=== PATIENT | female | born 1965 | race Caucasian/White ===

== ENCOUNTER → 2020-02-06 | Day surgery (SDC) | payer BC ==
[~2020-02-06] VITALS: Ht 165.1 cm; Wt 68.0 kg
[2020-02-06 15:09] VITALS: BP 107/52
--- NOTE | 2020-02-18 12:07 | PATH ---
[facility] [address] [place] [address] PATHOLOGY RPT PROCEDURE Name: SAMEER GARVINCARSON Chan Room #: REG [facility].#: [id number] Admission: 02/06/20 Date of : 61 Discharge: Report #: [id number] Path Case #: [id number] [facility] Accession Number: [id number] . 01 Material submitted: . orbit - RIGHT LATERAL ORBITAL MASS. Modifiers: right, lateral . 01 Clinical history: . Orbital mass . 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 (See comment) . (CLW:tyler; 02/09/2020) [facility] 02/09/2020 1339 Local . 02 Comment: Sections show fragments of fibroadipose connective tissue and adjacent lacrimal gland. The lacrimal gland has chronic dacryocystitis. The connective tissue is involved by reactive lymphoid hyperplasia. The lymphocytes are polymorphous. There are small round mature-appearing lymphocytes with condensed chromatin and scant cytoplasm with admixed large lymphoid cells. There are multiple, irregularly-shaped, well-formed germinal centers with tingible body macrophages. No markedly atypical lymphoid cells, including Ted-Kelin cells, are identified. No carcinoma or granulomas are identified. . Properly-controlled immunohistochemical stains are performed: . Block A2: AE1/AE3 - Highlights the benign lacrimal gland tissue; CD20 - Stains B-cells primarily in follicles; PAX-5 - Stains B-cells primarily in follicles; CD3 - Highlights admixed T-cells; CD5 - Highlights admixed T-cells, no B-cell co-expression; CD10 - Stains germinal centers; BCL-6 - Stains germinal centers; BCL-2 - Germinal centers are non-reactive; CD23 - Highlights follicular dendritic cell meshwork; Cyclin D1 - Lacks diffuse nuclear staining; MUM1 - Stains scattered small cells (plasma cells); CD68 - Highlights tingible body macrophages; Ki-67 - Increased staining within germinal centers. . [address] [address] PATHOLOGY RPT PROCEDURE Name: BRETT GARVIN Room #: REG [facility]#: [id number] Admission: 02/06/20 Date of : 61 Discharge: Report #: [id number] Path Case #: [id number] Overall, the diagnosis is chronic dacryocystitis and reactive lymphoid hyperplasia. 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 Clinical correlation is recommended. The H and E stains are co-reviewed with Dr. Esther Snyder. . (CLW:tyler; 02/09/2020) . 02 Addendum: . Special studies report received from [facility], [address] [place] [address], [address], [place], [address], on case [id number], labeled with their number [id number], dated 02/16/2020. . B-cell (IGH / IGK) Gene Rearrangement Analysis by PCR . INTERPRETATION: No evidence of a clonal B-cell gene rearrangement . Indication for Study: Hematolymphoid Neoplasia Assessment . Specimen Type: Paraffin-Embedded Tissue-Right Lateral Orbital Mass . Comments: Immunoglobulin heavy chain (IGH) and kappa light chain (IGK) gene rearrangements were not detected. These results do not entirely exclude the possibility of a monoclonal B-cell population. . These results should be interpreted in the context of available clinical, morphologic, and immunophenotypic findings. . Analytical Results: Assay Type Detection Parameters Result Clonal IGH gene IGH gene FR I Clonality Not Rearrangement Detected Clonal IGH gene IGH gene FR II Clonality Not Rearrangement Detected Clonal IGH gene IGH gene FR III Clonality Not Rearrangement Detected Clonal IGK gene IGK gene V-J Clonality Not Rearrangement Detected Clonal IGK gene IGK gene V-Kde Clonality Not Rearrangement Detected . . at [employer], Ph.D., CAR DABMG, DABCC, DLMcm, M(ASCP)cm, TEVIN(ASCP)cm . [address] [address] PATHOLOGY RPT PROCEDURE Name: BRETT GARVIN Room #: REG [facility] M.R.#: [id number] Admission: 02/06/20 Date of : 61 Discharge: Report #: [id number] Path Case #: [id number] Methodology: The B-cell immunoglobulin heavy chain (IGH)/kappa light chain (IGK) gene rearrangement assays are performed using extracted DNA as a starting material. To detect B-cell clonality, primers that target the conserved frameworks (FR) I, II, III in the variable (V) region of the immunoglobulin heavy chain (IGH) gene and the conserved V-J (variable and joining); and V-Kde (V-Kde and RUBI intron-Kde) regions of the immunoglobulin (IGK) gene are used in various polymerase chain reactions (PCRs). Fragment analysis is performed using capillary electrophoresis to detect the PCR products. This analysis is able to discriminate between polyclonal and monoclonal gene rearrangements allowing the elucidation of B-cell clonality. . Intended Use: This assay is designed to evaluate B-cell clonality using polymerase chain reaction (PCR). The results of this assay are based on the detection of clonal rearrangements of the immunoglobulin heavy chain (IGH)/kappa light chain (IGK) genes in B-cells which may be indicative of a neoplastic or reactive process. The technology utilized in this assay, although highly specific, may not detect all clonal rearrangements. This PCR assay is capable of detecting a clonal B-cell population with a sensitivity of 5 clonal B-cells per 100 normal cells. However, not all clonal B-cell populations will be detected even when adequate tissue is present due to limitation of primers used in this assay. The results of this study should be interpreted in the context of all clinical and laboratory findings. No therapeutic action should be taken based solely upon these gene rearrangement results. . . Disclaimer This Test was performed by [employer] at [address], [address]. [facility] [employer] is a business unit of [employer] a wholly-owned subsidiary of [employer]. . . Any image(s) that accompany this report is/are a inbound call center representative image(s) only and should not be used to render a diagnosis. . This test was developed and its performance characteristics determined by [employer]. It has not been cleared or approved by the Food and Drug Administration. . A complete copy of the report is on file. . Professional services performed by [facility] at [address], [place] [address]. Technical services performed by [address] [address] PATHOLOGY RPT PROCEDURE Name: BRETT GARVIN Room #: REG [facility].#: [id number] Admission: 02/06/20 Date of : 61 Discharge: Report #: [id number] Path Case #: [id number] [facility] at [address], [place] [address]. . (CLW:fartun 02/16/2020) . OCW/02/16/2020 Addendum Electronically Signed by Kat Gardner MD, Pathologist Addendum #2: Additional properly-controlled immunohistochemical stains are performed: . Block A2: . Hollins and lambda in-situ hybridization - Occasional plasma cells are polyclonal. . B-cell gene rearrangement studies do not identify a clonal abnormality. This in conjunction with the polyclonal population identified on in-situ hybridization, further supports the diagnosis of pseudolymphoma. The case is also co-reviewed with Dr. Vani Vela. Clinical correlation is required. . (CLW:mmalbaro; 02/17/2020) . . Professional services performed by [facility] at [address] [place] [address]. Technical services performed by [facility] at [address] [place] [address], [address], [place] [address]. MBR/02/17/2020 Addendum Electronically Signed by Kat Gardner MD, Pathologist . 02 Electronically signed: . Kat Gardner MD, Pathologist NPI- [id number] . 01 Gross description: . The specimen is received in formalin, labeled "Brett Garvin, right lateral orbital mass". Received is a segment of pale patel tissue measuring 2.1 x 2.0 x 1.0 cm in greatest dimensions. The surgical margin is inked. Sectioning reveals a well-circumscribed pale patel nodule measuring 1.7 cm in maximum dimensions, which grossly abuts the inked margin. The specimen is bisected and entirely submitted in cassettes A1 and A2. (CAA; 02/07/2020) QAC/QAC 02/07/2020 1210 Local . 02 Pathologist provided ICD-10: H04.411 . 02 CPT . [address] [address] PATHOLOGY RPT PROCEDURE Name: BRETT GARVIN Room #: REG [facility] M.R.#: [id number] Admission: 02/06/20 Date of : 61 Discharge: Report #: [id number] Path Case #: [id number] Specimen Comment: A courtesy copy of this report has been sent to [phone] Specimen Comment: [phone] Specimen Comment: Report sent to / DR KEY Performed at: 01 [facility] [address] [id number] MD Elfego Livingston MD Phone: [phone] Performed at: 02 [facility] [address] [id number] MD Mark Vazquez MD Phone: [phone]
--- NOTE | 2020-02-20 06:04 | O ---
[facility] [place] [address] OPERATIVE REPORT Name: BRETT GARVIN Room #: REG [facility]#: [id number] Admission: 02/06/20 Attend Phys: Vitaliy Erwin MD Discharge: Date of : 61 Report #: [id number] THIS REPORT FOR: cc: FAM - Family physician unknown FAM - Family physician unknown Vitaliy Erwin MD ~ CC: Jose Tellez MD [facility] unknown Trung Erwin DATE OF SERVICE: 02/06/2020 PREOPERATIVE DIAGNOSIS: Right lateral orbital mass. POSTOPERATIVE DIAGNOSIS: Right lateral orbital mass. PROCEDURE: Right lateral orbitotomy. SURGEON: Vitaliy Erwin MD DENTAL APPLIANCE MECHANIC: Jose Tellez MD ANESTHESIA: General. COMPLICATIONS: None. INDICATIONS FOR SURGERY: This pleasant 54-year-old woman who has a several year history of enlarging right lateral orbital mass that appears to be within the substance of the lacrimal gland. Upon imaging, she was also found to have a lesion on the left superior orbit that is not in the lacrimal gland. She presents today for a right lateral orbitotomy to remove the mass in the right lateral orbit with the understanding that if it turns out to be a process that does not explain the process of undergoing on the left superior orbit, then a separate intervention will be necessary in that regard. Informed consent was obtained to include, but not limited to the potential risk for loss of vision, bleeding, infection, failure to improve the problem, the potential need for further surgery or treatment. DESCRIPTION OF PROCEDURE: The patient was taken to the operating room where general anesthesia was administered. The right lateral orbit was then anesthetized with Xylocaine with epinephrine mixed with Marcaine and Wydase. The patient was subsequently prepped and draped in the usual sterile fashion. The left eye was protected with an Op-Site. An upper lid crease extended incision was then outlined in the central upper lid extending out into the [address] [address] OPERATIVE REPORT Name: VIRGIEBRETT D Room #: REG [facility]#: [id number] Admission: 02/06/20 Attend Phys: Vitaliy Erwin MD Discharge: Date of : 61 Report #: [id number] infratemporal fossa. Incision was then made through the skin with a 15 blade. A Swisher needle was then used to dissect through the orbicularis and the orbital septum until the mass was ballottable within the field. The dissection was then undertaken utilizing both blunt and sharp techniques retracting the mass out of the orbit allowing deeper access into the orbit. The reason certified physical therapist assistant was used for this procedure was to attempt to get the mass out without having to take the lateral orbit down. In the beginning of the dissection, I was not sure we would not have to take the lateral orbit down removing the bony wall. However, we were able to come around the lesion 360 degrees even back into the deep orbit and remove the mass en-bloc. Posteriorly and medially, it was difficult to tell if the mass was completely encapsulated. The entire lacrimal gland including both lobes however was excised. The wound was palpated and no further mass was appreciated. The wound was then closed with subcutaneous chromic sutures deep and then 6-0 plain gut final closure. The wound was then dressed with erythromycin ointment. The patient subsequently transported to the recovery area having tolerated the procedure well with no anesthetic or operative complications being noted. <ELECTRONICALLY SIGNED> By: Vitaliy Erwin MD 02/20/20 0604 1631 1744 Vitaliy Erwin MD /nt
== END | disposition home or self-care (01) ==
LOC: OR 12:15
PROVIDERS: ATTEND Ophthalmology
DX: H04.411 Chronic dacryocystitis of right lacrimal passage (principal); H05.89 Other disorders of orbit; Z98.890 Other specified postprocedural states; Z88.0 Allergy status to penicillin
CPT/HCPCS: 50010; 50101; 50386; 50398; 51636; 56531; 62110; 62900; 70005